=== PATIENT | female | born 1980 | race Caucasian/White ===

== ENCOUNTER 2017-07-01 05:29 | Emergency (ER) | payer OTHER ==
[~2017-07-01] VITALS: Ht 165.1 cm; Wt 65.8 kg
--- NOTE | 2017-07-01 06:43 | PHYS DOC ---
Past Medical History Past Medical History: No Pertinent History Past Surgical History: Other Additional Past Surgical Histo: LAPAROSCOPY Alcohol Use: None Drug Use: None Adult General Chief Complaint Chief Complaint: VAGINAL BLEEDING HPI HPI Patient is a 36 year old to who presents with vaginal bleeding. She states she is about 14 weeks and they've had to do IVF for this. She is seen by [facility]. She states is why she had up use a bathroom and had a little spotting and a large glass of blood. She's had just a little bit of spotting since then. She denies any pain. She states she's an O+ blood type. She denies recent sexual intercourse. Review of Systems Review of Systems Constitutional: Denies fever or chills [] Eyes: Denies change in visual acuity, redness, or eye pain [] HENT: Denies nasal congestion or sore throat [] Respiratory: Denies cough or shortness of breath [] Cardiovascular: No additional information not addressed in HPI [] GI: Denies abdominal pain, nausea, vomiting, bloody stools or diarrhea [] : Denies dysuria or hematuria [] Musculoskeletal: Denies back pain or joint pain [] Integument: Denies rash or skin lesions [] Neurologic: Denies headache, focal weakness or sensory changes [] Endocrine: Denies polyuria or polydipsia [] Physical Exam Physical Exam Constitutional: Well developed, well nourished, no acute distress, non-toxic appearance. [] HENT: Normocephalic, atraumatic, bilateral external ears normal, oropharynx moist, no oral exudates, nose normal. [] Eyes: PERRLA, EOMI, conjunctiva normal, no discharge. [] Neck: Normal range of motion, no tenderness, supple, no stridor. [] Cardiovascular:Heart rate regular rhythm, no murmur [] Lungs & Thorax: Bilateral breath sounds clear to auscultation [] Abdomen Pelvic Exam: [place] present Abdomen: Nontender External Genitalia: Normal Skin Speculum: Normal vaginal mucosa, minimal blood around the os and in the vault Bowel sounds normal, soft, no tenderness, no masses, no pulsatile masses. [] Skin: Warm, dry, no erythema, no rash. [] Back: No tenderness, no CVA tenderness. [] Extremities: No tenderness, no cyanosis, no clubbing, ROM intact, no edema. [] Neurologic: Alert and oriented X 3, normal motor function, normal sensory function, no focal deficits noted. [] Psychologic: Affect normal, judgement normal, mood normal. [] Current Patient Data Vital Signs Vital Signs Date Time Temp Pulse Resp B/P (MAP) Pulse Ox O2 Delivery O2 Flow Rate FiO2 07/01/17 05:49 97.6 82 16 157/77 (103) 97 Room Air 97.6 Lab Values Laboratory Tests Test 07/01/17 05:30 07/01/17 05:48 07/01/17 05:52 Urine Collection Type Unknown Urine Color Red Urine Clarity Cloudy Urine pH 5.5 Urine Specific [place] >=1.030 Urine Protein 100 mg/dL (NEG-TRACE) Urine Glucose (UA) Negative mg/dL (NEG) Urine Ketones (Stick) Trace mg/dL (NEG) Urine Blood Large (NEG) Urine Nitrite Negative (NEG) Urine Bilirubin Negative (NEG) Urine Urobilinogen Dipstick 0.2 mg/dL (0.2 mg/dL) Urine Leukocyte Esterase Small (NEG) Urine RBC Tntc /HPF (0-2) Urine WBC 5-10 /HPF (0-4) Urine Squamous Epithelial Cells Many /LPF Urine Transitional Epithelial Cells Few /LPF Urine Renal Epithelial Cells Occ /LPF Urine Amorphous Sediment Present /HPF Urine Bacteria Moderate /HPF (0-FEW) Urine Mucus Marked /LPF POC Urine HCG, Qualitative Hcg positive (Negative) White Blood Count 7.6 x10^3/uL (4.0-11.0) Red Blood Count 4.30 x10^6/uL (3.50-5.40) Hemoglobin 13.6 g/dL (12.0-15.5) Hematocrit 40.3 % (36.0-47.0) Mean Corpuscular Volume 94 fL (79-100) Mean Corpuscular Hemoglobin 32 pg (25-35) Mean Corpuscular Hemoglobin Concent 34 g/dL (31-37) Red Cell Distribution Width 13.2 % (11.5-14.5) Platelet Count 145 x10^3/uL (140-400) Neutrophils (%) (Auto) 52 % (31-73) Lymphocytes (%) (Auto) 36 % (24-48) Monocytes (%) (Auto) 8 % (0-9) Eosinophils (%) (Auto) 4 % (0-3) H Basophils (%) (Auto) 1 % (0-3) Neutrophils # (Auto) 3.9 x10^3uL (1.8-7.7) Lymphocytes # (Auto) 2.7 x10^3/uL (1.0-4.8) Monocytes # (Auto) 0.6 x10^3/uL (0.0-1.1) Eosinophils # (Auto) 0.3 x10^3/uL (0.0-0.7) Basophils # (Auto) 0.0 x10^3/uL (0.0-0.2) Prothrombin Time 12.3 SEC (11.7-14.0) Prothrombin Time INR 1.0 (0.8-1.1) PTT 25 SEC (24-38) Maternal Serum HCG Beta Subunit 09548 mIU/mL (0-5) H Sodium Level 139 mmol/L (136-145) Potassium Level 3.7 mmol/L (3.5-5.1) Chloride Level 105 mmol/L (98-107) Carbon Dioxide Level 26 mmol/L (21-32) Anion Gap 8 (6-14) Blood Urea Nitrogen 12 mg/dL (7-20) Creatinine 0.5 mg/dL (0.6-1.0) L Estimated GFR (Cockcroft-Gault) 141.2 Glucose Level 91 mg/dL (70-99) Calcium Level 9.0 mg/dL (8.5-10.1) Laboratory Tests 07/01/17 05:52 Laboratory Tests 07/01/17 05:52 Microbiology 07/01/17 Wet Prep - Final, Complete EKG EKG [] Radiology/Procedures Radiology/Procedures [facility] [address] [place], [place] [id number] IMAGING REPORT Signed PATIENT: SEAN VALENTINE ACCOUNT: [id number] : 1980 LOCATION: ER AGE: 36 SEX: F EXAM STATUS: REG ER ORD. PHYSICIAN: GT WADE MD REASON: vaginal bleeding PROCEDURE: PREG MORE THAN OR EQ TO 14 WKS ADDENDUM Addendum: Along the inferior placental edge there is a hypoechoic region measuring 2 x 3 x 1 cm, could represent small hemorrhage. This does not appear to tract posterior to the placenta. This was discussed with Dr. Wade at 0802 hours. Attention to this region on follow-up is recommended. Electronically signed by: Rk David MD (07/01/2017 8:03 AM) [facility] DICTATED AND SIGNED BY: RK DAVID MD DATE: 07/01/17 0801 CC: GT WADE MD; BERNY DUMONT ~ Clinical Indication: Vaginal bleeding today. Technique: Study is dated July 01, 2017 No comparison study is available. Transabdominal imaging was performed. Findings: There is a single intrauterine gestation in transverse presentation, head to maternal left. The placenta is anterior in location without evidence of placental previa. Cervix appears long and closed. TINY subjectively is within normal limits. Biometrical data is as follows: BPD = 2.85 cm, with a corresponding gestational age of 15 weeks 1 days. HC = 1.07 cm, with a corresponding gestational age of 15 weeks 1 days. AC = 8.70 cm, with a corresponding gestational age of 15 weeks 0 days. FL = 1.45 cm, with a corresponding gestational age of 14 weeks 2 days. Ratio of head circumference to abdominal circumference is 1.23. Cephalic index is 86 percent. Overall, the estimated sonographic gestational age is 14 weeks 5 days for an estimated date of delivery of December 25, 2017. Estimated weight is not calculated. A full survey was not performed. movement is documented. heart tones of 149 bpm are noted. Four-chamber heart is documented. Bladder is visualized. Three-vessel cord is documented. IMPRESSION: Single intrauterine gestation with estimated sonographic gestational age of 14 weeks 5 days. Full survey at 20 weeks would be recommended. Electronically signed by: Rk David MD (07/01/2017 7:16 AM) [facility] DICTATED and SIGNED BY: RK DAVID MD DATE: 07/01/17 0711 CC: GT WADE MD; BERNY DUMONT ~ RUN DATE: 07/01/17 PAGE 1 RUN TIME: 07 [facility] [address] [place] [address] Mikel Dorman M.D., [employer] PATIENT: SEAN VALENTINE ACCT: [id number] LOC: [facility]AL[facility] U : [id number] AGE/SX: 36/F ROOM: REG : 07/01/[address]: GT WADE MD : 1980 BED: DIS : STATUS: REG ER TLOC: SPEC #: [id number] ARGELIA: 07/01/17 STATUS: COMP REQ #: [id number] RECD: 07/01/[address] [facility] [address]: GT WADE MD SOURCE: VAGINAL ENTR: 07/01/[address]: BERNY DUMONT [facility]: ORDERED: WET PREP COMMENTS: Has specimen been collected/obtained? Y Procedure Result WET PREP Final YEAST NONE SEEN TRICHOMONAS NONE SEEN CLUE CELLS NONE SEEN RBCS FEW SQUAMOUS EPS FEW END OF REPORT Impressions: Threatened miscarriage Course & Med Decision Making Course & Med Decision Making Pertinent Labs and Imaging studies reviewed. (See chart for details) Patient presents with vaginal bleeding that has improved. She does have a little bit of pains around superior to her uterus that she states is like "gas pains". She is O+ and ultrasound shows a small subchorionic hemorrhage around 2- 3 cm in size. She follows at [facility]. I did speak with Dr. Ramirez , her [employer]'s partner. She is agreeable to discharge with pelvic rest and treat her bacteriuria. Patient is O+ and does not need Rhogam. She does have ketones and bacteria in her urine. She is instructed to hydrate and is being discharged on nitrofurantoin 100 twice a day for 7 days. She is to follow-up with her OB in [facility]. Return precautions given. She is agreeable to the plan being discharged in stable condition. Dragon Disclaimer Dragon Disclaimer This electronic medical record was generated, in whole or in part, using a voice recognition dictation system. Departure Departure Impression: Primary Impression: Threatened miscarriage Referrals: BERNY DUMONT (PCP) Additional Instructions: You were seen today for vaginal bleeding during . The ultrasound which is listed below shows a small area 2 x 3 x 1 cm that could represent a small hemorrhage along the inferior edge of your placenta. I spoke with Dr. Ofelia Ramirez at [facility] and informed her of the ultrasound report in addition to your physical exam. Your beta Quant is 56,000. You have a follow- up appointment on Monday. Please take this paperwork with you. You are slightly dehydrated and need to drink a few extra glasses of water and you'll need take antibiotics for the next 7 days. I recommend that you take it easy over the next several days and do not do any strenuous activities and have pelvic rest until you are cleared by your [employer] physician. If you have increasing vaginal bleeding, pain, or other concerns please return back to the emergency department or speak directly to your [employer] physician. [facility] [address] [place] [address] IMAGING REPORT Signed PATIENT: SEAN VALENTINE ACCOUNT: [id number] : 1980 LOCATION: ER AGE: 36 SEX: F EXAM STATUS: REG ER ORD. PHYSICIAN: GT WADE MD REASON: vaginal bleeding PROCEDURE: PREG MORE THAN OR EQ TO 14 WKS ADDENDUM Addendum: Along the inferior placental edge there is a hypoechoic region measuring 2 x 3 x 1 cm, could represent small hemorrhage. This does not appear to tract posterior to the placenta. This was discussed with Dr. Wade at 0802 hours. Attention to this region on follow-up is recommended. Electronically signed by: Rk David MD (07/01/2017 8:03 AM) [facility] DICTATED AND SIGNED BY: RK DAVID MD DATE: 07/01/17 0801 CC: GT WADE MD; BERNY DUMONT ~ Clinical Indication: Vaginal bleeding today. Technique: Study is dated July 01, 2017 No comparison study is available. Transabdominal imaging was performed. Findings: There is a single intrauterine gestation in transverse presentation, head to maternal left. The placenta is anterior in location without evidence of placental previa. Cervix appears long and closed. TINY subjectively is within normal limits. Biometrical data is as follows: BPD = 2.85 cm, with a corresponding gestational age of 15 weeks 1 days. HC = 1.07 cm, with a corresponding gestational age of 15 weeks 1 days. AC = 8.70 cm, with a corresponding gestational age of 15 weeks 0 days. FL = 1.45 cm, with a corresponding gestational age of 14 weeks 2 days. Ratio of head circumference to abdominal circumference is 1.23. Cephalic index is 86 percent. Overall, the estimated sonographic gestational age is 14 weeks 5 days for an estimated date of delivery of December 25, 2017. Estimated weight is not calculated. A full survey was not performed. movement is documented. heart tones of 149 bpm are noted. Four-chamber heart is documented. Bladder is visualized. Three-vessel cord is documented. IMPRESSION: Single intrauterine gestation with estimated sonographic gestational age of 14 weeks 5 days. Full survey at 20 weeks would be recommended. Electronically signed by: Rk David MD (07/01/2017 7:16 AM) [facility] DICTATED and SIGNED BY: RK DAVID MD DATE: 07/01/17 0711 CC: GT WADE MD; BERNY DUMONT ~ Scripts Nitrofurantoin Monohyd/M-Cryst (MACROBID 100 MG CAPSULE) 100 Mg Capsule 1 CAP PO BID, #[id number] CAP Prov: GT WADE MD 07/01/17 GT WADE MD Jul 01, 2017 06:43
[2017-07-01 06:44] LABS: BASO % 1 % (0-3); EOS % 4 % (0-3); HEMATOCRIT 40.3 % (36.0-47.0); HEMOGLOBIN 13.6 g/dL (12.0-15.5); LYMPH # 2.7 x10^3/uL (1.0-4.8); LYMPH % 36 % (24-48); MEAN CORPUSCULAR HEMOGLOBIN 32 pg (25-35); MEAN CORPUSCULAR HGB CONC 34 g/dL (31-37); MEAN CORPUSCULAR VOLUME 94 fL (79-100); MONO % 8 % (0-9); NEUT % 52 % (31-73); PLATELET COUNT 145 x10^3/uL (140-400); RED CELL DISTRIBUTION WIDTH 13.2 % (11.5-14.5); WHITE BLOOD COUNT 7.6 x10^3/uL (4.0-11.0)
[2017-07-01 06:45] LABS: BILIRUBIN,URINE NEGATIVE (NEG); GLUCOSE,URINE NEGATIVE (NEG); NITRITE,URINE NEGATIVE (NEG); PH,URINE 5.5; PROTEIN,URINE 100 mg/dL (NEG-TRACE); UROBILINOGEN,URINE 0.2 mg/dL (0.2 mg/dL)
[2017-07-01 06:49] LABS: CREATININE 0.5 mg/dL (0.6-1.0); GFR 141.2; POTASSIUM 3.7 mmol/L (3.5-5.1)
[2017-07-01 06:52] LABS: PROTHROMBIN TIME PATIENT 12.3 SEC (11.7-14.0)
[2017-07-01 07:00] LABS: SQUAMOUS EPITHELIAL CELL,UR MANY /LPF
[2017-07-01 07:04] LABS: RBC,URINE TNTC /HPF (0-2)
[2017-07-01 07:05] LABS: BACTERIA,URINE MODERATE /HPF (0-FEW)
--- NOTE | 2017-07-01 07:19 | RAD ---
Clinical Indication: Vaginal bleeding today. Technique: Study is dated July 01, 2017 No comparison study is available. Transabdominal imaging was performed. Findings: There is a single intrauterine gestation in transverse presentation, head to maternal left. The placenta is anterior in location without evidence of placental previa. Cervix appears long and closed. TINY subjectively is within normal limits. Biometrical data is as follows: BPD = 2.85 cm, with a corresponding gestational age of 15 weeks 1 days. HC = 1.07 cm, with a corresponding gestational age of 15 weeks 1 days. AC = 8.70 cm, with a corresponding gestational age of 15 weeks 0 days. FL = 1.45 cm, with a corresponding gestational age of 14 weeks 2 days. Ratio of head circumference to abdominal circumference is 1.23. Cephalic index is 86 percent. Overall, the estimated sonographic gestational age is 14 weeks 5 days for an estimated date of delivery of December 25, 2017. Estimated weight is not calculated. A full survey was not performed. movement is documented. heart tones of 149 bpm are noted. Four-chamber heart is documented. Bladder is visualized. Three-vessel cord is documented. IMPRESSION: Single intrauterine gestation with estimated sonographic gestational age of 14 weeks 5 days. Full survey at 20 weeks would be recommended. Electronically signed by: Rk David MD (07/01/2017 7:16 AM) [facility]
[2017-07-01 08:00] VITALS: BP 120/74
[2017-07-01] MEDS ORDERED: NITR100C62 PO (08:35)
== END 2017-07-01 08:51 | disposition home or self-care (01) ==
LOC: ER 05:29
DX: O20.0 Threatened abortion (principal); Z3A.14 14 weeks gestation of pregnancy
CPT/HCPCS: 76805; 80048; 81001; 81025; 84702; 85025; 85610; 85730; 86900; 86901; 87086; 99285; Q0111; 36415; 87491; 87591